=== PATIENT | male | born 1955 | race Caucasian/White ===

== ENCOUNTER 2019-05-27 10:20 | Outpatient (CLI) | payer MEDICARE, MEDICAID ==
[~2019-05-27 10:20] MED LIST: CYCL-259 PO; FLUT16SP24 NAS; HYDR-826 PO; LOVA20TA2 PO; MELO15TA24 PO; OXYC15TA PO; SERT100T32 PO; TRAZ50TA66 PO; ZOLP10TA5 PO
== END 2019-05-27 23:59 | disposition home or self-care (01) ==
LOC: WOUND 10:20
PROVIDERS: ATTEND Internal Medicine
DX: S41.14 Puncture wound with foreign body of upper arm (principal); C22.0 Liver cell carcinoma; G89.4 Chronic pain syndrome; F13.280 Sedative, hypnotic or anxiolytic dependence with sedative, hypnotic or anxiolytic-induced anxiety disorder; R63.4 Abnormal weight loss; F41.9 Anxiety disorder, unspecified; H91.93 Unspecified hearing loss, bilateral; Z87.891 Personal history of nicotine dependence; W54.0XXD Bitten by dog, subsequent encounter
CPT/HCPCS: G0463

== ENCOUNTER → 2019-07-23 | Outpatient (CLI) | payer MEDICARE, MEDICAID | END | disposition home or self-care (01) | LOC: ROC 08:47 | PROVIDERS: ATTEND Radiology Radiation Oncology | DX: C79.51 Secondary malignant neoplasm of bone (principal) | CPT/HCPCS: G0463 ==

== ENCOUNTER 2021-01-12 10:02 | Outpatient (CLI) | payer MEDICARE, MEDICAID ==
[~2021-01-12 10:02] MED LIST changes: -CYCL-259 PO; +CYCL10TA2 PO; -OXYC15TA PO; +OXYC15TA3 PO
== END 2021-01-12 23:59 | disposition home or self-care (01) ==
LOC: CFH 10:02
PROVIDERS: ATTEND Internal Medicine Hematology & Oncology
DX: R07.9 Chest pain, unspecified (principal); C22.0 Liver cell carcinoma; Z51.11 Encounter for antineoplastic chemotherapy; E03.9 Hypothyroidism, unspecified; Z79.899 Other long term (current) drug therapy
CPT/HCPCS: 76604

== ENCOUNTER → 2021-03-03 | Outpatient (CLI) | payer MEDICARE, MEDICAID ==
[~2021-03-03] MED LIST changes: +OMNIPAQUE 350 MG/ML, 75ML BOTTLE ONE
== END | disposition home or self-care (01) ==
LOC: RAD 10:31
PROVIDERS: ATTEND Internal Medicine Hematology & Oncology
DX: C22.0 Liver cell carcinoma (principal)
CPT/HCPCS: 71260; 78306; A9503; Q9967